=== PATIENT | female | born 1945 | race Caucasian/White ===

== ENCOUNTER → 2023-03-12 06:19 | Day surgery (SDC) | payer MEDICARE, OTHER, SELFPAY | LOC: GI 06:19 | PROVIDERS: ATTENDING PHYSICIAN Internal Medicine Gastroenterology; FAMILY PHYSICIAN Internal Medicine | DX: Z12.11 Encounter for screening for malignant neoplasm of colon (principal); D12.0 Benign neoplasm of cecum; D12.2 Benign neoplasm of ascending colon; D12.3 Benign neoplasm of transverse colon; K57.30 Diverticulosis of large intestine without perforation or abscess without bleeding; K64.0 First degree hemorrhoids; Z86.010 Personal history of colon polyps; Z98.890 Other specified postprocedural states; Z79.01 Long term (current) use of anticoagulants | CPT/HCPCS: 45385; 45380; 88305; 88342 ==

== ENCOUNTER → 2023-03-15 10:55 | Outpatient (REF) | payer MEDICARE, OTHER, SELFPAY | LOC: DHCBC MAIN 10:55 | PROVIDERS: ATTENDING PHYSICIAN Internal Medicine Cardiovascular Disease; FAMILY PHYSICIAN Internal Medicine | DX: Z98.890 Other specified postprocedural states (principal) | CPT/HCPCS: 93306 ==

== ENCOUNTER → 2023-03-18 11:43 | Outpatient (REF) | payer MEDICARE, OTHER, SELFPAY ==
[2023-03-18 12:50] LABS: Blood Urea Nitrogen 15 mg/dl (7-17); Calcium 9.3 mg/dl (8.4-10.2); Carbon Dioxide 28 mmol/L (22-30); Chloride 96 mmol/L (98-107); Glucose 159 mg/dl (70-99); Potassium 4.3 mmol/L (3.5-5.1); Sodium 133 mmol/L (135-145); eGFR > 60.00
[2023-03-18 13:43] LABS: CEA 2.95 ng/ml
== END ==
LOC: REG 11:43
PROVIDERS: ATTENDING PHYSICIAN Internal Medicine Gastroenterology; FAMILY PHYSICIAN Internal Medicine
DX: C18.2 Malignant neoplasm of ascending colon (principal)
CPT/HCPCS: 36415; 80048; 82378

== ENCOUNTER → 2023-03-19 14:26 | Outpatient (REF) | payer MEDICARE, OTHER, SELFPAY | LOC: HWRAD 14:26 | PROVIDERS: ATTENDING PHYSICIAN Internal Medicine Gastroenterology; FAMILY PHYSICIAN Internal Medicine | DX: C18.2 Malignant neoplasm of ascending colon (principal) | CPT/HCPCS: 71260; 74177; Q9967 ==

== ENCOUNTER → 2023-03-28 | Outpatient (REF) | payer MEDICARE, OTHER, SELFPAY | LOC: DHSLP | PROVIDERS: ATTENDING PHYSICIAN Internal Medicine Critical Care Medicine; FAMILY PHYSICIAN Internal Medicine | DX: G47.33 Obstructive sleep apnea (adult) (pediatric) (principal); R09.02 Hypoxemia | CPT/HCPCS: 95811 ==

== ENCOUNTER → 2023-04-10 15:30 | Outpatient (REF) | payer MEDICARE, OTHER, SELFPAY | LOC: RAD 15:30 | PROVIDERS: ATTENDING PHYSICIAN Internal Medicine Critical Care Medicine; FAMILY PHYSICIAN Internal Medicine | DX: Z87.891 Personal history of nicotine dependence (principal) | CPT/HCPCS: 71271 ==

== ENCOUNTER 2023-04-26 06:21 | Inpatient (IN) | payer MEDICARE, OTHER, SELFPAY ==
[2023-04-19 10:11] LABS: Hematocrit 43.1 % (37.0-47.0); Hemoglobin 14.5 g/dL (12.0-16.0); Mean Corp Hgb Conc. 33.6 g/dL (33.0-37.0); Mean Corpuscular Hgb 32.7 pg (27.0-31.0); Mean Corpuscular Volume 97.3 fL (81.0-99.0); Mean Platelet Volume 9.6 fL (7.4-10.4); Platelet Count 192 10^3/uL (130-400); Red Blood Cell Count 4.43 10^6/uL (4.20-5.40); Red Cell Dist. Width 17.3 % (11.5-14.5); White Blood Cell Count 4.3 10^3/uL (4.8-10.8)
[2023-04-19 10:37] LABS: ALT (SGPT) 18 U/L (0-35); AST (SGOT) 30 U/L (14-36); Albumin 4.2 g/dl (3.5-5.0); Alkaline Phosphatase 117 U/L (38-126); Blood Urea Nitrogen 17 mg/dl (7-17); Calcium 9.6 mg/dl (8.4-10.2); Carbon Dioxide 30 mmol/L (22-30); Chloride 99 mmol/L (98-107); Glucose 80 mg/dl (70-99); Potassium 4.1 mmol/L (3.5-5.1); Sodium 136 mmol/L (135-145); Total Bilirubin 0.9 mg/dl (0.2-1.3); Total Protein 7.2 g/dl (6.3-8.2); eGFR > 60.00
[2023-04-19 10:42] LABS: INR 1.12; PT 14.2 Sec (11.4-14.6)
[2023-04-19 10:43] LABS: APTT 36.6 Sec (23.4-35.0)
[2023-04-19 11:20] LABS: Glycohemoglobin (HgbA1c) 5.2 % (4.0-5.6)
[2023-04-19 13:30] VITALS: BMI 23.7
[2023-04-26] VITALS (13 sets, daily range): BP systolic 90–137; BP diastolic 43–73
[2023-04-26] MEDS: ENTEREG 12 MG PO (10:03)
[2023-04-26] MEDS: TYLENOL 1000 MG PO (10:03)
[2023-04-26] MEDS: HEPARIN 5000 UNITS SC (10:04)
--- NOTE | 2023-04-26 13:45 | W.IMMPOSTOP ---
Surgical Immed Post Op Note
-
Primary Surgeon: Jose De Jesus Whitaker MD
Assistants: NIDHI Kong, Kim Jimenez PA-C, SHERYL Gay Do
Pre-op Diagnosis: Neoplastic polyp of the ascending colon
Post-op Diagnosis: Same
Procedure Performed: Robotic right colectomy with intracorporeal anastomosis
Anesthesia Type: GET
Specimen / Cultures: Right colon
Estimated Blood Loss: 10cc
Complications: None
Operative Findings: Anneliese Ink at the hepatic flexure
No evidence of metastatic disease
Patient's updated.
Colon Resection
Colon Resection
Operation performed with curative intent: Yes
Tumor Location: Ascending Colon
Right Hemicolectomy: Ileocolic and Right Colic
[2023-04-26] MEDS: DILAUDID 0.25 MG IV (14:12)
[2023-04-26] MEDS: NORMOSOL-R 1000 IV ×2 (14:40→23:19)
[2023-04-26] MEDS: TORADOL 15 MG IV ×2 (15:54→20:06)
[2023-04-26] MEDS: TYLENOL 650 MG PO ×2 (15:54→20:06)
--- NOTE | 2023-04-26 17:12 | PTCARENOTE ---
Pt received from PACU s/p Right Robotic Colectomy. AAOx3. VSS. Procedural sites closed with Dermabond. CDI. IVF infusing per order. Mcmahon draining clear, yellow urine. Pt denies any pain at this time. Assessment documented.
[2023-04-27] MEDS: TORADOL 15 MG IV ×4 (02:14→20:00)
[2023-04-27 03:22] VITALS: BP 117/55
[2023-04-27] MEDS: TYLENOL PO ×3 (05:07→13:20)
[2023-04-27 06:00] VITALS: BMI 24.5
[2023-04-27 06:52] LABS: % Basophils 0.1 % (0-2); % Immature Granulocytes 0.4 % (0-0.5); % Lymphocytes 2.1 % (20.5-51.1); % Monocytes 3.9 % (1.7-9.3); % Neutrophils 93.5 % (42.2-75.2); Absolute Immature Granulocytes 0.1 10^3/uL (0-0.05); Absolute Lymphocytes 0.2 10^3/uL (1.2-3.4); Absolute Monocytes 0.4 10^3/uL (0.1-0.6); Absolute Neutrophils 10.6 10^3/uL (1.4-6.5); Hematocrit 36.3 % (37.0-47.0); Hemoglobin 12.3 g/dL (12.0-16.0); Mean Corp Hgb Conc. 33.9 g/dL (33.0-37.0); Mean Corpuscular Hgb 32.6 pg (27.0-31.0); Mean Corpuscular Volume 96.3 fL (81.0-99.0); Nucleated Red Blood Cells % 0 %; Platelet Count 177 10^3/uL (130-400); Red Blood Cell Count 3.77 10^6/uL (4.20-5.40); Red Cell Dist. Width 16.7 % (11.5-14.5); White Blood Cell Count 11.4 10^3/uL (4.8-10.8)
[2023-04-27 07:33] LABS: Blood Urea Nitrogen 12 mg/dl (7-17); Calcium 8.6 mg/dl (8.4-10.2); Carbon Dioxide 28 mmol/L (22-30); Chloride 96 mmol/L (98-107); Estimated Creatinine Clearance 70 ml/min; Glucose 159 mg/dl (70-99); Potassium 4.2 mmol/L (3.5-5.1); Sodium 130 mmol/L (135-145); eGFR > 60.00
[2023-04-27 07:50] VITALS: BP 116/61
[2023-04-27] MEDS: CARDIZEM CD 240 MG PO (08:11)
[2023-04-27] MEDS: NORMOSOL-R 1000 IV ×2 (08:14→22:32)
[2023-04-27] MEDS: ENTEREG 12 MG PO ×2 (08:15→20:00)
[2023-04-27] MEDS: TYLENOL 650 MG PO ×4 (08:15→19:59)
--- NOTE | 2023-04-27 11:17 | W.PN.GS2 ---
Today's Communication / Plan
-
Clear liquids and advance to fulls as tolerated
Assessment / Plan
-
77 yo female with h/o PAF on Eliquis with known neoplastic polyp of the ascending colon now POD #1 robotic right colectomy
Progressing as expected
AFVSS
Labs stable. Mild hyponatremia secondary to fluid shifts.
--Start CLD and advance as tolerated
--Analgesics scheduled and prn
--OR path pending
--OOB/Ambulate. IS while awake
--D/C IVF once tolerating PO
--Lovenox 40mg for VTE ppx. Hold full strength AC until 48-72 hours post op.
--Remove Mcmahon for voiding trial
Subjective Data
-
Date of Service: April 27, 2023
Patient seen and examined at bedside with Dr. Jimenez. Denies n/v. Minimal post op discomfort. Passing flatus.
Objective Data
-
Intake and Output
04/26/23 04/27/23 04/28/23
06:59 06:59 06:59
Intake Total 100 / 100
Output Total 910 / 910
Balance -810 / -810
Intake:
IV fluids (Total) 100 / 100
Normosol 100 / 100
Output:
Urine, Mcmahon 910 / 910
Vital Signs
Temp Pulse Resp BP Pulse Ox
98.1 F 71 18 116/61 96
04/27/23 07:50 04/27/23 08:11 04/27/23 07:50 04/27/23 08:11 04/27/23 07:50
Lab Results
04/27/23 06:10
04/27/23 06:10
Calcium 8.6 mg/dl (8.4-10.2) 04/27/23 06:10
Total Bilirubin 0.9 mg/dl (0.2-1.3) 04/19/23 08:59
AST 30 U/L (14-36) 04/19/23 08:59
ALT 18 U/L (0-35) 04/19/23 08:59
Alkaline Phosphatase 117 U/L (38-126) 04/19/23 08:59
Total Protein 7.2 g/dl (6.3-8.2) 04/19/23 08:59
Albumin 4.2 g/dl (3.5-5.0) 04/19/23 08:59
Physical Exam
-
NAD
ABD soft, NT, mild distention
Incisions clear, dry, intact glue
[2023-04-27 11:32] VITALS: BP 125/62
[2023-04-27 15:15] VITALS: BP 119/66
--- NOTE | 2023-04-27 16:16 | CM ---
Patient seen at bedside. Patient walking many laps in the hallways. patient states that she lives with her husbnad in a 2 story home. Patient has no DME and uses the [facility] on [address] Patient PCP is Dr. Durán. 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 Patient plan is home with no needs. CM will continue to follow for discharge planning needs.
Plan; home with no needs anticipated.
[2023-04-27] MEDS: LOVENOX 40 MG SC (17:22)
[2023-04-27 18:15] VITALS: BP 119/66
[2023-04-27 22:30] VITALS: BP 132/71
[2023-04-28] MEDS: TYLENOL PO ×3 (00:19→23:40)
[2023-04-28] MEDS: TORADOL 15 MG IV ×4 (02:07→20:26)
[2023-04-28 06:00] VITALS: BMI 25.2
[2023-04-28 06:27] LABS: Hematocrit 33.2 % (37.0-47.0); Hemoglobin 11.5 g/dL (12.0-16.0); Mean Corp Hgb Conc. 34.6 g/dL (33.0-37.0); Mean Corpuscular Hgb 32.6 pg (27.0-31.0); Mean Corpuscular Volume 94.1 fL (81.0-99.0); Mean Platelet Volume 9.7 fL (7.4-10.4); Platelet Count 151 10^3/uL (130-400); Red Blood Cell Count 3.53 10^6/uL (4.20-5.40); Red Cell Dist. Width 16.9 % (11.5-14.5); White Blood Cell Count 10.1 10^3/uL (4.8-10.8)
[2023-04-28 06:48] LABS: Blood Urea Nitrogen 13 mg/dl (7-17); Calcium 8.5 mg/dl (8.4-10.2); Carbon Dioxide 29 mmol/L (22-30); Chloride 94 mmol/L (98-107); Estimated Creatinine Clearance 70 ml/min; Glucose 110 mg/dl (70-99); Potassium 4.2 mmol/L (3.5-5.1); Sodium 127 mmol/L (135-145); eGFR > 60.00
[2023-04-28 08:10] VITALS: BP 123/60
[2023-04-28] MEDS: ENTEREG 12 MG PO ×2 (09:21→20:26)
[2023-04-28] MEDS: CARDIZEM CD 240 MG PO (09:21)
[2023-04-28] MEDS: TYLENOL 650 MG PO ×4 (10:21→20:26)
--- NOTE | 2023-04-28 11:38 | W.PN.GS2 ---
Today's Communication / Plan
-
Advance diet
D/C IVF
Assessment / Plan
-
77 yo female with h/o PAF on Eliquis with known neoplastic polyp of the ascending colon now POD #1 robotic right colectomy
Progressing as expected
AFVSS
Labs stable. Mild hyponatremia present likely secondary to fluid shifts/hypervolemia.
--Advance to LRD with FR of 1200ml
--Analgesics scheduled and prn
--OR path pending
--OOB/Ambulate. IS while awake
--D/C IVF
--Lovenox 40mg for VTE ppx. Tentatively resume Eliquis in AM.
Subjective Data
-
Date of Service: April 28, 2023
Patient seen and examined at bedside with Dr. Jimenez. Questions addressed. Denies n/v. Tolerating diet. Passing flatus and some liquid stools. Pain is minimal.
Objective Data
-
Intake and Output
04/27/23 04/28/23 04/29/23
06:59 06:59 06:59
Intake Total 100 / 100 3000 / 3000
Output Total 910 / 910 320 / 320
Balance -810 / -810 2680 / 2680
Intake:
Oral fluids 1080 / 1080
IV fluids (Total) 100 / 100 1920 / 1920
Normosol 100 / 100
Output:
Urine, Mcmahon 910 / 910 120 / 120
Urine, Voided 200 / 200
Other:
Number of approximated LARGE 2
amounts of urine
Number of unmeasured liquid
stools
Rectum 1
Vital Signs
Temp Pulse Resp BP Pulse Ox
97.7 F 61 20 123/60 97
04/28/23 08:10 04/28/23 08:10 04/28/23 08:10 04/28/23 08:10 04/28/23 08:10
Lab Results
04/28/23 05:57
04/28/23 05:57
Calcium 8.5 mg/dl (8.4-10.2) 04/28/23 05:57
Total Bilirubin 0.9 mg/dl (0.2-1.3) 04/19/23 08:59
AST 30 U/L (14-36) 04/19/23 08:59
ALT 18 U/L (0-35) 04/19/23 08:59
Alkaline Phosphatase 117 U/L (38-126) 04/19/23 08:59
Total Protein 7.2 g/dl (6.3-8.2) 04/19/23 08:59
Albumin 4.2 g/dl (3.5-5.0) 04/19/23 08:59
Physical Exam
-
NAD
ABD soft, NT, ND
Incisions clear, dry, intact glue
[2023-04-28 16:06] VITALS: BP 128/59
[2023-04-28] MEDS: LOVENOX 40 MG SC (17:08)
[2023-04-28 22:34] VITALS: BP 120/57
[2023-04-29] MEDS: TORADOL IV ×3 (03:45→13:15)
[2023-04-29] MEDS: TYLENOL PO ×3 (04:45→12:16)
[2023-04-29 05:06] LABS: Hematocrit 33.4 % (37.0-47.0); Hemoglobin 11.2 g/dL (12.0-16.0); Mean Corp Hgb Conc. 33.5 g/dL (33.0-37.0); Mean Corpuscular Hgb 32.7 pg (27.0-31.0); Mean Corpuscular Volume 97.4 fL (81.0-99.0); Mean Platelet Volume 9.8 fL (7.4-10.4); Platelet Count 158 10^3/uL (130-400); Red Blood Cell Count 3.43 10^6/uL (4.20-5.40); White Blood Cell Count 6.8 10^3/uL (4.8-10.8)
[2023-04-29 05:30] LABS: Blood Urea Nitrogen 15 mg/dl (7-17); Calcium 8.1 mg/dl (8.4-10.2); Carbon Dioxide 30 mmol/L (22-30); Chloride 101 mmol/L (98-107); Estimated Creatinine Clearance 60 ml/min; Glucose 89 mg/dl (70-99); Potassium 4.1 mmol/L (3.5-5.1); Sodium 130 mmol/L (135-145); eGFR > 60.00
[2023-04-29 06:00] VITALS: BMI 25.0
[2023-04-29 08:37] VITALS: BP 146/76
[2023-04-29] MEDS: CARDIZEM CD 240 MG PO (09:12)
[2023-04-29] MEDS: ENTEREG 12 MG PO (09:12)
--- NOTE | 2023-04-29 12:54 | W.PN.CRS1 ---
Today's Communication / Plan
-
Discharge
Assessment/Plan
-
POD #3 robotic right colectomy
1. Labs and vitals normal.
2. Tolerating a low residue diet.
3. OR pathology pending.
4. Out of bed as tolerated.
5. Patient is doing well. Okay for discharge today. All discharge instructions discussed with the patient including medication details and follow-up. All questions answered.
Subjective Data
Subjective Data
Date of Service: April 29, 2023
Patient states that she feels a little bloated. She has flatus. She has not had a bowel movement yet. She is hungry. She is overall doing well.
Objective Data
-
Vital Signs
Temp Pulse Resp BP Pulse Ox
98 F 68 16 146/76 98
04/29/23 08:37 04/29/23 08:37 04/29/23 08:37 04/29/23 08:37 04/29/23 08:37
Intake & Output
04/28/23 04/29/23 04/30/23
06:59 06:59 06:59
Intake Total 3000 / 3000 1080 / 1080
Output Total 320 / 320
Balance 2680 / 2680 1080 / 1080
Intake:
Oral fluids 1080 / 1080 1080 / 1080
IV fluids (Total) 1919 / 1919
Output:
Urine, Mcmahon 120 / 120
Urine, Voided 200 / 200
Other:
Number of approximated MODERATE 3
amounts of urine
Number of approximated LARGE 2
amounts of urine
Number of unmeasured liquid
stools
Rectum 1
Lab Results
04/29/23 04:38
04/29/23 04:38
Physical Exam
-
General: No Acute Distress and AOx3
Abdomen: Soft, Non Distended and Non Tender
Skin: Warm and Dry
Incision: Clear, Dry, Intact
--- NOTE | 2023-04-29 13:02 | W.DS.TRANS ---
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
-
Discharge Instructions:
Discharge Diagnosis/Procedures Robotic right colectomy with intracorporeal
anastomosis
Diet Regular
Additional Diets Okay to eat as tolerated
Activity No strenuous activity
Additional Activity No lifting over 10 pounds (gallon of milk)
Driving Restrictions No driving while on narcotics
Bathing Restrictions OK to Shower
Blood Work CBC in 2 weeks
Wound Care Allow glue to naturally fall off. Do not pick
at incisions.
Instructions:
Stand-Alone Forms:
Changes to Home Medications: Yes
Discharge Medications:
DC Medications w/original date entered in [employer]
Methy B12 Dissolvable Tablet 1 tab PO DAILY Supplement 04/24/22
cholecalciferol (vitamin D3) 125 mcg (5,000 unit) tablet (Vitamin D3) 125 mcg PO DAILY Supplement 04/24/22
eszopiclone 3 mg tablet (Lunesta) 3 mg PO HS Sleep 04/24/22
xagmdopnooz-jtdshaiyo-var C-Mn 500 mg-400 mg capsule (Glucosamine Chondroitin Maximum Strength) 1 cap PO DAILY Supplement 04/24/22
ascorbate calcium (vitamin C) 500 mg tablet 2,000 mg PO DAILY Supplement 07/16/22
diltiazem HCl 240 mg capsule,extended release 24 hr 240 mg PO DAILY #30 caps 08/06/22
Lactobac no.2-Bifidobac no.1-S. thermo 112.5 billion cell capsule (Visbiome) 1 cap PO DAILY Gastrointestinal Issue 09/04/22
Fish Oil 2 cap PO DAILY Supplement 04/24/23
apixaban 5 mg tablet (Eliquis) 5 mg PO BID Atrial fibrillation 04/24/23
calcium 2 tab PO DAILY Supplement 04/24/23
tramadol 50 mg tablet 50 mg PO Q6HPRN PRN severe pain #20 tabs 04/29/23
Home Medication Changes
tramadol 50 mg tablet 50 mg PO Q6HPRN PRN severe pain #20 tabs 04/29/23
Pending Results: Yes
Additional Pending Results:
OR pathology
[2023-04-29] MEDS: TYLENOL 650 MG PO (13:26)
--- NOTE | 2023-04-29 13:33 | CM ---
Reviewed the chart notes and spoke with the patient at the bedside. IMM signed and placed on the chart. The patient is being discharged to home with no needs. The patient's spouse is providing transportation to home. CM continues to be available
to patient/family and is monitoring medical plan for needs at discharge.
Plan: Discharge to home with no needs.
--- NOTE | 2023-05-22 10:44 | W.DCSUMMARY ---
Discharge Summary
Discharge Data
Date of Admission: 04/26/23
Date of Discharge: 04/29/23
-
Pending Results: Yes
Additional Pending Results:
Pathology
Hospital Course
77-year-old female presents for a scheduled robotic right colectomy on 04/26/2023 for a neoplastic polyp of the ascending colon, performed by Dr. Jose De Jesus Whitaker. The patient was brought back to the medical surgical floor postoperatively. The
following day she was out of bed and Lovenox started for DVT prophylaxis. She was started on a clear liquid diet and eventually advanced to a low residue diet throughout her stay. Her home dose of Eliquis was held until the day of discharge. On
postop day 3 is determined patient to be discharged home all discharge instructions were discussed the patient including medication, activity levels, and follow-up. She is to follow-up with Dr. Whitaker in 2 weeks for a postop appointment. Final
pathology was pending upon discharge.
Discharge Plan
-
Patient Disposition: Home (Routine Discharge)
Discharge Diagnosis/Procedures: Robotic right colectomy with intracorporeal anastomosis
Condition: Good
Diet: Regular
Additional Diets: Okay to eat as tolerated
Activity: No strenuous activity
Additional Activity: No lifting over 10 pounds (gallon of milk)
Driving Restrictions: No driving while on narcotics
Bathing Restrictions: OK to Shower
Blood Work: CBC in 2 weeks
Wound Care: Allow glue to naturally fall off. Do not pick at incisions.
Activity Restrictions/Additional Instructions:
Restart your Eliquis tonight.
Referrals:
Ben Whitaker MD [Active] - 05/16/23 9:45 am
Magda Druán MD [Family Provider] -
Prescriptions:
New
tramadol 50 mg Tablet
50 mg PO Q6HPRN PRN (Reason: severe pain) Qty: 20 0RF
Continued
fatumkgjdge-qxmggqmvn-yuh C-Mn [Glucosamine Chondroitin MaxStr] 500-400 mg Capsule
1 cap PO DAILY
cholecalciferol (vitamin D3) [Vitamin D3] 125 mcg (5,000 unit) Tablet
125 mcg PO DAILY
Methy B12 Dissolvable Tablet
1 tab PO DAILY
eszopiclone [Lunesta] 3 mg Tablet
3 mg PO HS
ascorbate calcium (vitamin C) 500 mg Tablet
2,000 mg PO DAILY
diltiazem HCl 240 mg Capsule,Extended Release 24hr
240 mg PO DAILY Qty: 30 0RF
Visbiome 112.5 billion cell Capsule
1 cap PO DAILY
Eliquis 5 mg Tablet
5 mg PO BID
Fish Oil
2 cap PO DAILY
calcium
2 tab PO DAILY
Discontinued
magnesium glycinate-mag oxide 120 mg magnesium Capsule
120 mg PO DAILY
metronidazole 500 mg Tablet
500 mg PO .PRE OP
Dulcolax (bisacodyl)
1 tab PO .PRE OP
Golytely
1 unit PO .PRE OP
Discharge Orders:
Discharge Patient (As Directed); Ordered 04/29/23
Ordered By: Julianna Alejandro
Discharge Date and Time
Discharge Date/Time: 04/29/23 13:36
Print Language: SWEDISH
== END 2023-04-29 13:36 | disposition home or self-care (01) | DRG 330 ==
LOC: 2 SOUTH 06:21
PROVIDERS: Registered Nurse; ADMITTING PHYSICIAN Surgery; FAMILY PHYSICIAN Internal Medicine
PROC: 0DTF4ZZ Resection of Right Large Intestine, Percutaneous Endoscopic Approach (ICD-10-PCS; 2023-04-26)
PROC: 8E0W4CZ Robotic Assisted Procedure of Trunk Region, Percutaneous Endoscopic Approach (ICD-10-PCS; 2023-04-26)
DX: D01.0 Carcinoma in situ of colon (principal); E87.1 Hypo-osmolality and hyponatremia; I48.0 Paroxysmal atrial fibrillation; E87.70 Fluid overload, unspecified; I10 Essential (primary) hypertension; G47.33 Obstructive sleep apnea (adult) (pediatric); Z80.0 Family history of malignant neoplasm of digestive organs; Z87.891 Personal history of nicotine dependence; Z79.01 Long term (current) use of anticoagulants
CPT/HCPCS: 88307; 36415; 80048; 80053; 83036; 85025; 85027; 85610; 85730; 86850; 86900; 86901; J1335

== ENCOUNTER → 2023-05-11 10:07 | Outpatient (REF) | payer MEDICARE, OTHER, SELFPAY ==
[2023-05-11 11:15] LABS: % Basophils 0.8 % (0-2); % Eosinophils 1.5 % (0-6); % Immature Granulocytes 0.3 % (0-0.5); % Lymphocytes 9.6 % (20.5-51.1); % Monocytes 6.8 % (1.7-9.3); Absolute Basophils 0.1 10^3/uL (0-0.2); Absolute Eosinophils 0.1 10^3/uL (0-0.7); Absolute Lymphocytes 0.7 10^3/uL (1.2-3.4); Absolute Monocytes 0.5 10^3/uL (0.1-0.6); Absolute Neutrophils 5.9 10^3/uL (1.4-6.5); Hematocrit 34.4 % (37.0-47.0); Hemoglobin 11.7 g/dL (12.0-16.0); Mean Corpuscular Hgb 33.2 pg (27.0-31.0); Mean Corpuscular Volume 97.7 fL (81.0-99.0); Mean Platelet Volume 8.8 fL (7.4-10.4); Nucleated Red Blood Cells % 0 %; Platelet Count 289 10^3/uL (130-400); Red Blood Cell Count 3.52 10^6/uL (4.20-5.40); Red Cell Dist. Width 15.9 % (11.5-14.5); White Blood Cell Count 7.3 10^3/uL (4.8-10.8)
[2023-05-11 11:43] LABS: ALT (SGPT) 18 U/L (0-35); AST (SGOT) 29 U/L (14-36); Albumin 3.9 g/dl (3.5-5.0); Alkaline Phosphatase 119 U/L (38-126); Blood Urea Nitrogen 14 mg/dl (7-17); Calcium 9.3 mg/dl (8.4-10.2); Carbon Dioxide 27 mmol/L (22-30); Chloride 102 mmol/L (98-107); Glucose 80 mg/dl (70-99); Potassium 4.5 mmol/L (3.5-5.1); Sodium 133 mmol/L (135-145); Total Bilirubin 0.6 mg/dl (0.2-1.3); Total Cholesterol 177 mg/dl (50-199); Total Protein 6.6 g/dl (6.3-8.2); Triglyceride 63 mg/dl (10-149); Very Low Density Lipoprotein 12 mg/dl (0-30); eGFR > 60.00
[2023-05-11 11:54] LABS: HDL Cholesterol 108 mg/dl; LDL Cholesterol, Calculated 57 mg/dl
[2023-05-11 12:13] LABS: TSH Reflex To Free T4 0.71 uIU/ml (0.47-4.68)
== END ==
LOC: REG 10:07
PROVIDERS: ATTENDING PHYSICIAN Internal Medicine Cardiovascular Disease; FAMILY PHYSICIAN Internal Medicine
DX: I48.0 Paroxysmal atrial fibrillation (principal); I10 Essential (primary) hypertension; E78.89 Other lipoprotein metabolism disorders; E78.2 Mixed hyperlipidemia
CPT/HCPCS: 36415; 80053; 80061; 84443; 85025

== ENCOUNTER → 2023-05-22 12:50 | Outpatient (REF) | payer MEDICARE, OTHER, SELFPAY | LOC: RCS 12:50 | PROVIDERS: ATTENDING PHYSICIAN Internal Medicine Cardiovascular Disease; FAMILY PHYSICIAN Internal Medicine | DX: R00.0 Tachycardia, unspecified (principal) | CPT/HCPCS: 93225; 93226 ==

== ENCOUNTER 2023-05-24 13:06 | Emergency (ER) | payer MEDICARE, OTHER, SELFPAY ==
[2023-05-24 13:16] VITALS: BP 144/76
[2023-05-24 13:41] LABS: % Basophils 0.4 % (0-2); % Eosinophils 0.5 % (0-6); % Immature Granulocytes 0.2 % (0-0.5); % Monocytes 11.4 % (1.7-9.3); % Neutrophils 71.5 % (42.2-75.2); Absolute Lymphocytes 1.3 10^3/uL (1.2-3.4); Absolute Monocytes 0.9 10^3/uL (0.1-0.6); Absolute Neutrophils 5.8 10^3/uL (1.4-6.5); Hematocrit 39.2 % (37.0-47.0); Hemoglobin 13.2 g/dL (12.0-16.0); Mean Corp Hgb Conc. 33.7 g/dL (33.0-37.0); Mean Corpuscular Hgb 32.7 pg (27.0-31.0); Mean Platelet Volume 8.6 fL (7.4-10.4); Nucleated Red Blood Cells % 0 %; Platelet Count 215 10^3/uL (130-400); Red Blood Cell Count 4.04 10^6/uL (4.20-5.40); Red Cell Dist. Width 14.8 % (11.5-14.5); White Blood Cell Count 8.1 10^3/uL (4.8-10.8)
[2023-05-24 14:03] LABS: Troponin I < 0.012 ng/ml
--- NOTE | 2023-05-24 15:44 | ED.GENMED ---
History of Present Illness
General
Chief Complaint: Heart Rate Problem
Time Seen by Provider: 05/24/23 15:42
Travel History
Have you had any contact with someone who has COVID-19?: No
Do you have any symptoms of coronavirus? Fever > 100 degrees, chills, cough, shortness of breath, sore throat, loss of taste or smell, muscle aches, or headache?: No
History of Present Illness
History of Present Illness:
HPI: Patient had concerns for high heart rate. She just dropped off a Holter monitor earlier today at around the time felt that she was in 'distress'�she cannot qualify this any further. She had a general unwell feeling I was encouraged to come in
here for further evaluation. She is concerned because her heart rate was high. I told her that her heart rate is currently 90 on the monitor and she feels this is too high for her at rest.
EXAM:
GENERAL: Well appearing in no distress
HEENT: Moist oral mucosa
CARDIOVASCULAR: No murmurs, normal heart rate, regular rhythm, No chest wall tenderness
PULMONARY: No respiratory distress, breath sounds are clear and equal
ABDOMEN: Soft with no peritoneal signs, no tenderness
NEUROLOGIC: Excellent strength all extremities, no coordination deficits
PSYCHIATRIC: Appropriate mental status, normal insight and judgement, appears anxious
EXTREMITIES: Nontender, no edema, moves all extremities equally
SKIN: No rash, no lesions
TIME OF INITIAL ENCOUNTER: 4:00 PM
NUMBER AND COMPLEXITY OF PROBLEMS ADDRESSED AT THE ENCOUNTER
� Chronic conditions affecting care: Former smoker, A-fib, high blood pressure, recent diagnosis of sleep apnea
� Acute Exacerbation and/or Progression of Chronic Illness: This is an acute problem
� Differential Diagnosis includes: Dysrhythmia such as A-fib, SVT, atrial tachycardia, PVCs, PACs
AMOUNT AND/OR COMPLEXITY OF DATA TO BE REVIEWED AND ANALYZED
� I performed an independent evaluation of and my interpretation is:
EKG: Sinus 103, PVCs, septal Q waves also seen on 04/11/2023
CT:
X-rays:
Laboratory Studies: CBC unremarkable, troponin less than 0.012, sodium slightly low but otherwise chemistries unremarkable
Other:
� Review of other/old records: I reviewed records. Patient had robotic right colectomy 04/26/[address] Whitaker
� Clinical information was obtained by an independent historian: None needed
� Prescriptions/Medications Considered but not given:
� Further testing considered but not performed:
RISK OF COMPLICATIONS AND/OR MORBIDITY OR MORTALITY OF PATIENT MANAGEMENT
� Social determinants of health affecting care: Lives at home
� Discussion with other providers: I discussed case with Dr. Quijano reviewed the monitor that showed PVCs and PACs as well as a 4 beat run of NSVT
� Escalation of care including admission/observation vs risk of discharge considered: The patient's heart rate is primarily around 90. Hysterectomy is somewhat anxious. The patient was given IV fluids and on reassessment at
5:30 PM, the patient has a heart rate of 77. She overall feels improved. Blood work is relatively unremarkable.
Past History
Past History
ED Past Medical History: HTN and Other (anemia; GI bleed); Negative IDDM
ED Past Surgical History: Orthopedic (Right hip replacement)
Social History
Tobacco: Former smoker
Alcohol: Occasional
Personal:
Living: with family
Employment: Other
Family History
Family History: Other; Negative Early CAD
Phy Exam
Physical Exam
Physical Exam:
See HPI
Course
Orders/Labs/Results
Orders:
Orders
05/24/23 13:23
Electrocardiogram (*1) Urgent
Reason for Study: Tachycardia
EKG- Treatment ONCE
05/24/23 13:30
Complete Blood Count/With Diff Urgent
Troponin I Urgent
05/24/23 15:57
Comprehensive Metabolic Panel Urgent
TSH Reflex To Free T4 Urgent
Comment: TSH REFLEX ADDED ON BY FLOOR 4PM 05-24-23
05/24/23 15:58
Add On- LAB Urgent
Tests Added?: tsh reflex fT4
05/24/23 15:59
0.9% Sodium Chloride 1000 ml [Nss] 1,000 ml IV BOLUS
Abnormal Lab Results
05/24/23 05/24/23
13:30 15:57
RBC 4.04 L 10^6/uL
(4.20-5.40)
MCH 32.7 H pg
(27.0-31.0)
RDW 14.8 H %
(11.5-14.5)
Absolute Monos (auto) 0.9 H 10^3/uL
(0.1-0.6)
Lymphocytes % 16.0 L %
(20.5-51.1)
Monocytes % 11.4 H %
(1.7-9.3)
Sodium 129 L mmol/L
(135-145)
Chloride 96 L mmol/L
(98-107)
Glucose 135 H mg/dl
(70-99)
05/24/23 13:30
05/24/23 15:57
Vital Signs
Initial and Last Documented VS:
Initial Vital Signs
Temp Pulse Resp BP Pulse Ox
98.3 F 99 18 144/76 98
05/24/23 13:16 05/24/23 13:16 05/24/23 13:16 05/24/23 13:16 05/24/23 13:16
Last Documented Vital Signs
Temp Pulse Resp BP Pulse Ox
98.3 F 78 20 122/63 98
05/24/23 13:16 05/24/23 17:00 05/24/23 17:00 05/24/23 17:00 05/24/23 17:00
*Critical Care Note
Total Time (30-74mins, 75-104mins- exclusive of procedures): Not Applicable
ED Attending Note
-
Portions of this chart may have been created with voice recognition software.� Occasional wrong word or��sound alike� substitutions may have occurred due to the inherent limitations of voice recognition software.
Discharge Plan
Departure
Patient Disposition: Home (Routine Discharge)
Date of Disposition: 05/24/23
Time of Disposition: 17:42
Patient with high blood pressure during this ER visit?: Yes
Discharge Problem:
Palpitations
Prescriptions:
No Action
jowzvqdsdcp-jpfqflbvo-iic C-Mn [Glucosamine Chondroitin MaxStr] 500-400 mg Capsule
1 cap PO DAILY
cholecalciferol (vitamin D3) [Vitamin D3] 125 mcg (5,000 unit) Tablet
125 mcg PO DAILY
Methy B12 Dissolvable Tablet
1 tab PO DAILY
eszopiclone [Lunesta] 3 mg Tablet
3 mg PO HS
ascorbate calcium (vitamin C) 500 mg Tablet
2,000 mg PO DAILY
diltiazem HCl 240 mg Capsule,Extended Release 24hr
240 mg PO DAILY Qty: 30 0RF
Visbiome 112.5 billion cell Capsule
1 cap PO DAILY
Eliquis 5 mg Tablet
5 mg PO BID
Fish Oil
2 cap PO DAILY
calcium
2 tab PO DAILY
tramadol 50 mg Tablet
50 mg PO Q6HPRN PRN (Reason: severe pain) Qty: 20 0RF
Referrals:
Magda Durán MD [Family Provider] -
Activity Restrictions/Additional Instructions:
Dr. Macdonald indicated that you did have some extra beats but no other concerning abnormality on the Holter monitoring. Basic blood work here is unremarkable. Return here if worse. Your EKG and monitoring shows some extra ventricular and atrial
beats which is extremely common.
Interventions
Interventions:
*Risk Screen - Suicide Last Done: 05/24/23 16:00
*General Assessment Last Done: 05/24/23 16:00
*Neglect/Abuse Screening Last Done: 05/24/23 16:00
ED- Fall Risk Assessment Last Done: 05/24/23 16:30
*ED COVID-19 Vaccine History Last Done: 05/24/23 16:00
ED- Cardiac Assessment Last Done: 05/24/23 16:30
ED- Pulmonary Assessment Last Done: 05/24/23 16:30
Discharge Date and Time
Print Language: JAPANESE
[2023-05-24 15:50] VITALS: BP 148/69
[2023-05-24] MEDS: NSS 1000 IV (15:59)
[2023-05-24 16:00] VITALS: BP 124/59; BMI 23.8
[2023-05-24 16:56] LABS: ALT (SGPT) 19 U/L (0-35); AST (SGOT) 30 U/L (14-36); Alkaline Phosphatase 121 U/L (38-126); Blood Urea Nitrogen 12 mg/dl (7-17); Calcium 9.1 mg/dl (8.4-10.2); Carbon Dioxide 25 mmol/L (22-30); Chloride 96 mmol/L (98-107); Estimated Creatinine Clearance 73 ml/min; Glucose 135 mg/dl (70-99); Potassium 3.9 mmol/L (3.5-5.1); Sodium 129 mmol/L (135-145); Total Bilirubin 0.9 mg/dl (0.2-1.3); Total Protein 7.1 g/dl (6.3-8.2); eGFR > 60.00
[2023-05-24 17:00] VITALS: BP 122/63
[2023-05-24 17:10] LABS: TSH Reflex To Free T4 0.52 uIU/ml (0.47-4.68)
== END 2023-05-24 18:21 | disposition home or self-care (01) ==
LOC: EMR 13:06
PROVIDERS: Emergency Medicine; EMERGENCY PHYSICIAN Emergency Medicine; FAMILY PHYSICIAN Internal Medicine
DX: R00.2 Palpitations (principal); I10 Essential (primary) hypertension; I48.91 Unspecified atrial fibrillation; G47.30 Sleep apnea, unspecified; Z87.891 Personal history of nicotine dependence
CPT/HCPCS: 99283; 96360; 80053; 84443; 84484; 85025; 93005

== ENCOUNTER → 2023-07-03 11:35 | Outpatient (REF) | payer MEDICARE, OTHER, SELFPAY ==
[2023-07-03 12:14] LABS: % Basophils 0.8 % (0-2); % Eosinophils 1.5 % (0-6); % Immature Granulocytes 0.3 % (0-0.5); % Lymphocytes 22.1 % (20.5-51.1); % Neutrophils 64.3 % (42.2-75.2); Absolute Eosinophils 0.1 10^3/uL (0-0.7); Absolute Lymphocytes 0.9 10^3/uL (1.2-3.4); Absolute Monocytes 0.4 10^3/uL (0.1-0.6); Absolute Neutrophils 2.5 10^3/uL (1.4-6.5); Hematocrit 41.6 % (37.0-47.0); Hemoglobin 13.7 g/dL (12.0-16.0); Mean Corp Hgb Conc. 32.9 g/dL (33.0-37.0); Mean Corpuscular Hgb 33.5 pg (27.0-31.0); Mean Corpuscular Volume 101.7 fL (81.0-99.0); Mean Platelet Volume 9.5 fL (7.4-10.4); Nucleated Red Blood Cells % 0 %; Platelet Count 153 10^3/uL (130-400); Red Blood Cell Count 4.09 10^6/uL (4.20-5.40); Red Cell Dist. Width 13.9 % (11.5-14.5); White Blood Cell Count 3.9 10^3/uL (4.8-10.8)
[2023-07-03 12:52] LABS: ALT (SGPT) 15 U/L (0-35); AST (SGOT) 31 U/L (14-36); Albumin 4.1 g/dl (3.5-5.0); Alkaline Phosphatase 99 U/L (38-126); Blood Urea Nitrogen 13 mg/dl (7-17); Calcium 9.8 mg/dl (8.4-10.2); Carbon Dioxide 28 mmol/L (22-30); Chloride 104 mmol/L (98-107); Glucose 87 mg/dl (70-99); Potassium 4.6 mmol/L (3.5-5.1); Sodium 140 mmol/L (135-145); Total Bilirubin 0.8 mg/dl (0.2-1.3); Total Cholesterol 205 mg/dl (50-199); Triglyceride 62 mg/dl (10-149); Very Low Density Lipoprotein 12 mg/dl (0-30); eGFR > 60.00
[2023-07-03 13:04] LABS: HDL Cholesterol 141 mg/dl; LDL Cholesterol, Calculated 52 mg/dl
[2023-07-03 13:08] LABS: Vitamin D, 25-OH*** 62.5 ng/mL (30-80)
[2023-07-03 13:22] LABS: TSH Reflex To Free T4 0.38 uIU/ml (0.47-4.68)
[2023-07-03 13:51] LABS: Free T4 1.33 ng/dl (0.78-2.19)
== END ==
LOC: REG 11:35
PROVIDERS: ATTENDING PHYSICIAN Internal Medicine
DX: E55.9 Vitamin D deficiency, unspecified (principal); E78.2 Mixed hyperlipidemia; E78.89 Other lipoprotein metabolism disorders; I10 Essential (primary) hypertension
CPT/HCPCS: 36415; 80053; 80061; 82306; 84439; 84443; 85025

== ENCOUNTER → 2023-08-12 10:06 | Outpatient (REF) | payer MEDICARE, OTHER, SELFPAY ==
[2023-08-12 12:25] LABS: TSH Reflex To Free T4 0.47 uIU/ml (0.47-4.68)
[2023-08-12 13:00] LABS: Folate > 20.0 ng/ml (2.76-20)
[2023-08-12 13:59] LABS: Vitamin B12 704 pg/ml (239-931)
[2023-08-13 14:24] LABS: Homocysteine 9 umol/L (0-15)
== END ==
LOC: REG 10:06
PROVIDERS: ATTENDING PHYSICIAN Physical Medicine & Rehabilitation; FAMILY PHYSICIAN Internal Medicine
DX: R79.89 Other specified abnormal findings of blood chemistry (principal); D51.1 Vitamin B12 deficiency anemia due to selective vitamin B12 malabsorption with proteinuria; E55.9 Vitamin D deficiency, unspecified; E72.11 Homocystinuria; E87.1 Hypo-osmolality and hyponatremia
CPT/HCPCS: 36415; 82607; 82746; 83090; 84443

== ENCOUNTER → 2024-02-06 14:17 | Outpatient (REF) | payer MEDICARE, OTHER, SELFPAY | LOC: HWWDC 14:17 | PROVIDERS: ATTENDING PHYSICIAN Internal Medicine | DX: M81.0 Age-related osteoporosis without current pathological fracture (principal); Z12.31 Encounter for screening mammogram for malignant neoplasm of breast | CPT/HCPCS: 77063; 77067; 77080 ==

== ENCOUNTER → 2024-03-05 14:01 | Outpatient (REF) | payer MEDICARE, OTHER, SELFPAY | LOC: HWRCS 14:01 | PROVIDERS: ATTENDING PHYSICIAN Internal Medicine Cardiovascular Disease; FAMILY PHYSICIAN Internal Medicine | DX: I48.0 Paroxysmal atrial fibrillation (principal); I34.0 Nonrheumatic mitral (valve) insufficiency; I07.1 Rheumatic tricuspid insufficiency | CPT/HCPCS: 93306 ==

== ENCOUNTER → 2024-03-25 12:52 | Outpatient (REF) | payer MEDICARE, OTHER, SELFPAY ==
[2024-03-25 13:53] LABS: Albumin 4.7 g/dl (3.5-5.0); Blood Urea Nitrogen 13 mg/dl (7-17); Calcium 9.3 mg/dl (8.4-10.2); Carbon Dioxide 31 mmol/L (22-30); Chloride 91 mmol/L (98-107); Glucose 138 mg/dl (70-99); Phosphorus 3.6 mg/dl (2.5-4.5); Potassium 4.5 mmol/L (3.5-5.1); Sodium 130 mmol/L (135-145); eGFR > 60.00
== END ==
LOC: REG 12:52
PROVIDERS: ATTENDING PHYSICIAN Internal Medicine Cardiovascular Disease; FAMILY PHYSICIAN Internal Medicine
DX: I10 Essential (primary) hypertension (principal); I48.19 Other persistent atrial fibrillation; I50.30 Unspecified diastolic (congestive) heart failure
CPT/HCPCS: 36415; 80069

== ENCOUNTER → 2024-04-01 11:16 | Outpatient (REF) | payer MEDICARE, OTHER, SELFPAY ==
[2024-04-01 13:03] LABS: Albumin 4.3 g/dl (3.5-5.0); Blood Urea Nitrogen 13 mg/dl (7-17); Calcium 9.3 mg/dl (8.4-10.2); Carbon Dioxide 29 mmol/L (22-30); Chloride 98 mmol/L (98-107); Glucose 93 mg/dl (70-99); Phosphorus 3.8 mg/dl (2.5-4.5); Potassium 4.3 mmol/L (3.5-5.1); Sodium 135 mmol/L (135-145); eGFR > 60.00
== END ==
LOC: REG 11:16
PROVIDERS: ATTENDING PHYSICIAN Obstetrics & Gynecology; FAMILY PHYSICIAN Internal Medicine
DX: E87.1 Hypo-osmolality and hyponatremia (principal)
CPT/HCPCS: 36415; 80069

== ENCOUNTER → 2024-04-17 14:31 | Outpatient (REF) | payer MEDICARE, OTHER, SELFPAY | LOC: HWRAD 14:31 | PROVIDERS: ATTENDING PHYSICIAN Internal Medicine Critical Care Medicine; FAMILY PHYSICIAN Internal Medicine | DX: Z87.891 Personal history of nicotine dependence (principal) | CPT/HCPCS: 71271 ==

== ENCOUNTER → 2024-05-15 10:40 | Outpatient (REF) | payer MEDICARE, OTHER, SELFPAY ==
[2024-05-15 11:39] LABS: % Basophils 0.7 % (0-2); % Eosinophils 0.6 % (0-6); % Immature Granulocytes 0.2 % (0-0.5); % Lymphocytes 17.1 % (20.5-51.1); % Monocytes 9.4 % (1.7-9.3); Absolute Lymphocytes 0.9 10^3/uL (1.2-3.4); Absolute Monocytes 0.5 10^3/uL (0.1-0.6); Absolute Neutrophils 3.9 10^3/uL (1.4-6.5); Hematocrit 44.1 % (37.0-47.0); Hemoglobin 15.3 g/dL (12.0-16.0); Mean Corp Hgb Conc. 34.7 g/dL (33.0-37.0); Mean Corpuscular Hgb 34.4 pg (27.0-31.0); Mean Corpuscular Volume 99.1 fL (81.0-99.0); Nucleated Red Blood Cells % 0 %; Platelet Count 181 10^3/uL (130-400); Red Blood Cell Count 4.45 10^6/uL (4.20-5.40); Red Cell Dist. Width 13.2 % (11.5-14.5); White Blood Cell Count 5.5 10^3/uL (4.8-10.8)
[2024-05-15 12:19] LABS: ALT (SGPT) 17 U/L (0-35); AST (SGOT) 33 U/L (14-36); Albumin 4.5 g/dl (3.5-5.0); Alkaline Phosphatase 93 U/L (38-126); Blood Urea Nitrogen 11 mg/dl (7-17); Calcium 9.6 mg/dl (8.4-10.2); Carbon Dioxide 27 mmol/L (22-30); Chloride 98 mmol/L (98-107); Glucose 97 mg/dl (70-99); Potassium 5.2 mmol/L (3.5-5.1); Sodium 134 mmol/L (135-145); Total Protein 7.1 g/dl (6.3-8.2); eGFR > 60.00
[2024-05-15 12:20] LABS: Free T3 4.16 pg/ml (2.77-5.27); Free T4 1.17 ng/dl (0.78-2.19)
[2024-05-15 12:34] LABS: Cortisol, Random 11.6 ug/dl; TSH 0.42 uIU/ml (0.47-4.68)
[2024-05-16 19:30] LABS: DHEA Sulfate 82 ug/dL (12-154)
== END ==
LOC: REG 10:40
PROVIDERS: ATTENDING PHYSICIAN Nurse Practitioner Adult Health; FAMILY PHYSICIAN Internal Medicine; OTHER PHYSICIAN Internal Medicine Clinical Cardiac Electrophysiology; OTHER PHYSICIAN Physical Medicine & Rehabilitation
DX: Z01.812 Encounter for preprocedural laboratory examination (principal); R53.83 Other fatigue
CPT/HCPCS: 36415; 80053; 82533; 82627; 84439; 84443; 84481; 85025

== ENCOUNTER 2024-09-29 06:16 | Day surgery (SDC) | payer MEDICARE, OTHER, SELFPAY | END 2024-09-29 09:24 | disposition home or self-care (01) | LOC: GI 06:16 | PROVIDERS: ATTENDING PHYSICIAN Surgery | DX: Z12.11 Encounter for screening for malignant neoplasm of colon (principal); K57.30 Diverticulosis of large intestine without perforation or abscess without bleeding; Z86.0101 Personal history of adenomatous and serrated colon polyps; Z80.0 Family history of malignant neoplasm of digestive organs | CPT/HCPCS: G0105 ==